=== PATIENT | female | born 1990 | race Caucasian/White ===

== ENCOUNTER 2021-05-06 08:16 | Emergency (ER) | payer MEDICARE, MEDICAID ==
[2021-05-06] MEDS ORDERED: Albuterol/Ipratropium 3.0-0.5 MG/3 ML Neb Soln NEB PRN (10:14)
--- NOTE | 2021-05-06 16:01 | EDM.PDOC ---
ED HPI GENERAL MEDICAL PROBLEM - General Chief Complaint: General Stated Complaint: CHEST PAIN Time Seen by Provider: 05/06/21 08:20 Source of Information: Reports: Patient, EMS History Limitations: Reports: No Limitations - History of Present Illness INITIAL COMMENTS - FREE TEXT/NARRATIVE: Presents to the ED for generalized illness going on 12 days. Whole household had a head cold/respiratory approximately 2-1/2 weeks ago but patient did not fully improve. Patient has Down syndrome and has difficulty verbalizing her health feelings and concerns. Patient signed with her hand indicating pressure or tightness on her chest. Tells her mom that she does not feel well, with lots of crying. Patient is eating well, no changes to urinary habits color smell frequency, bowel movements are normal. Patient answers yes and no to a few questions. But will not elaborate on her health condition. - Related Data Allergies Allergy/AdvReac Type Severity Reaction Status Date / Time cefixime [From Suprax] Allergy Hives Verified 05/06/21 09:41 Home Meds: Home Meds Levothyroxine 1 05/06/21 [History] Past Medical History Other HEENT History: sensitive to noise Other Neuro History: downs syndrome mostly non-verbal communication Psychiatric History: Reports: Developmental Delay Endocrine/Metabolic History: Reports: Hypothyroidism Social & Family History - Tobacco Use Tobacco Use Status *Q: Never Tobacco User ED ROS GENERAL - Review of Systems Review Of Systems: See Below Constitutional: Reports: No Symptoms. Denies: Fever, Chills, Weakness, Fatigue, Diaphoresis, Decreased Appetite HEENT: Reports: No Symptoms Respiratory: Reports: No Symptoms Cardiovascular: Reports: No Symptoms Endocrine: Reports: Other (Concerned over hypothyroid) GI/Abdominal: Reports: No Symptoms : Reports: No Symptoms Musculoskeletal: Reports: No Symptoms Skin: Reports: No Symptoms Neurological: Reports: No Symptoms Psychiatric: Reports: No Symptoms Hematologic/Lymphatic: Reports: No Symptoms ED EXAM, GENERAL - Physical Exam Exam: See Below Free Text/Narrative:: 30-year-old patient with Down syndrome. ABC intact, no apparent distress. Speaking in full sentences, no obvious trauma. Alert and oriented to her mother and surroundings, GCS 4 5 6. Exam Limited By: No Limitations (Present over my skin fluid right now no I think that he is case) General Appearance: Alert, WD/WN, No Apparent Distress Eye Exam: Bilateral Eye: EOMI, PERRL, Other (Increased tear gay) Ears: Normal External Exam, Normal Canal, Hearing Grossly Normal, Normal TMs Ear Exam: Bilateral Ear: Auricle Normal, Canal Normal, TM normal Nose: Normal Inspection, Normal Mucosa, No Blood Throat/Mouth: Normal Inspection, Normal Lips, Normal Teeth, Normal Gums, Normal Oropharynx, Normal Voice, No Airway Compromise Head: Atraumatic, Normocephalic Neck: Normal Inspection, Supple, Non-Tender, Full Range of Motion. No: Lymphadenopathy (R), Lymphadenopathy (L) Respiratory/Chest: No Respiratory Distress, Lungs Clear, Normal Breath Sounds, No Accessory Muscle Use, Chest Non-Tender Cardiovascular: Normal Peripheral Pulses, Regular Rate, Rhythm, No Edema, No Gallop, No JVD, No Murmur, No Rub GI/Abdominal: Normal Bowel Sounds, Soft, Non-Tender, No Organomegaly, No Distention, No Mass Back Exam: Normal Inspection, Full Range of Motion. No: CVA Tenderness (R), CVA Tenderness (L) Extremities: Normal Inspection, Normal Range of Motion, Non-Tender, Normal Capillary Refill, No Pedal Edema Neurological: Alert, Oriented, Normal Cognition Psychiatric: Normal Affect, Tearful Skin Exam: Warm, Dry, Intact, Normal Color, No Rash Lymphatic: No Adenopathy #1 Interpretation EKG Date: 05/06/21 (Normal sinus rhythm ST elevation in V3 V4 V5 V6, no ectopy) Course - Vital Signs Last Recorded V/S: Last Vital Signs Temp 98.0 F 05/06/21 08:45 Pulse 100 05/06/21 08:45 Resp 16 05/06/21 08:45 BP 114/66 05/06/21 08:45 Pulse Ox 98 05/06/21 08:45 - Orders/Labs/Meds Orders: Active Orders 24 hr Category Date Time Status Chest 2V [CR] Stat Exams 05/06/21 09:00 Taken Labs: Laboratory Tests 05/06/21 05/06/21 05/06/21 Range/Units 09:00 09:13 09:13 WBC 5.7 (4.0-11.0) K/uL RBC 4.27 (3.80-5.80) M/uL Hgb 13.6 (11.5-16.5) g/dL Hct 40.0 (37.0-47.0) % MCV 94 (76-96) fL MCH 31.9 (27.0-32.0) pg MCHC 34.0 (31.0-35.0) g/dL RDW 12.7 (11.0-16.0) % Plt Count 281 D (150-500) K/uL MPV 10.2 H (6.0-10.0) fL Neut % (Auto) 69.1 (45.0-70.0) % Lymph % (Auto) 18.0 L (20.0-40.0) % [place] % (Auto) 8.6 (3.0-10.0) % Eos % (Auto) 3.4 (1.0-5.0) % Baso % (Auto) 0.9 H (0.0-0.5) % Neut # (Auto) 3.92 (2.00-7.50) K/uL Lymph # (Auto) 1.02 L (1.50-4.00) K/uL [facility] # (Auto) 0.49 (0.20-0.80) K/uL Eos # (Auto) 0.19 (0.04-0.40) K/uL Baso # (Auto) 0.05 (0.02-0.10) K/uL Sodium 138 (136-145) mmol/L Potassium 4.1 (3.5-5.1) mmol/L Chloride 104 (98-107) mmol/L Carbon Dioxide 26.8 (21.0-32.0) mmol/L Anion Gap 11.3 (5.0-15.0) mmol/L BUN 13 (8-26) mg/dL Creatinine 0.86 (0.55-1.02) mg/dL Est Cr Clr Drug Dosing TNP Estimated GFR (MDRD) > 60 (>60) MLS/MIN BUN/Creatinine Ratio 15.1 (6-25) Glucose 99 (74-100) mg/dL Calcium 8.6 (8.5-10.1) mg/dL Troponin I < 0.017 (0.000-0.060) ng/mL TSH, Ultra Sensitive 1.727 D (0.358-3.740) uIU/mL Urine Color Yellow Urine Appearance Clear (CLEAR) Urine pH 7.0 (5.0-8.0) Ur Specific [place] 1.010 (1.003-1.030) Urine Protein Negative (NEGATIVE) mg/dL Urine Glucose (UA) Negative (NEGATIVE) mg/dL Urine Ketones Negative (NEGATIVE) mg/dL Urine Occult Blood Trace-intact H (NEGATIVE) Urine Nitrite Negative (NEGATIVE) Urine Bilirubin Negative (NEGATIVE) Urine Urobilinogen 0.2 (0.2-1.0) E.U./dL Ur Leukocyte Esterase Negative (NEGATIVE) Urine RBC 0-5 H /HPF Urine WBC 0-5 H /HPF Ur Squamous Epith Cells Occasional /HPF SARS-CoV-2 RNA (PAULA) (NEGATIVE) 05/06/21 Range/Units 10:04 WBC (4.0-11.0) K/uL RBC (3.80-5.80) M/uL Hgb (11.5-16.5) g/dL Hct (37.0-47.0) % MCV (76-96) fL MCH (27.0-32.0) pg MCHC (31.0-35.0) g/dL RDW (11.0-16.0) % Plt Count (150-500) K/uL MPV (6.0-10.0) fL Neut % (Auto) (45.0-70.0) % Lymph % (Auto) (20.0-40.0) % [place] % (Auto) (3.0-10.0) % Eos % (Auto) (1.0-5.0) % Baso % (Auto) (0.0-0.5) % Neut # (Auto) (2.00-7.50) K/uL Lymph # (Auto) (1.50-4.00) K/uL [facility] # (Auto) (0.20-0.80) K/uL Eos # (Auto) (0.04-0.40) K/uL Baso # (Auto) (0.02-0.10) K/uL Sodium (136-145) mmol/L Potassium (3.5-5.1) mmol/L Chloride (98-107) mmol/L Carbon Dioxide (21.0-32.0) mmol/L Anion Gap (5.0-15.0) mmol/L BUN (8-26) mg/dL Creatinine (0.55-1.02) mg/dL Est Cr Clr Drug Dosing Estimated GFR (MDRD) (>60) MLS/MIN BUN/Creatinine Ratio (6-25) Glucose (74-100) mg/dL Calcium (8.5-10.1) mg/dL Troponin I (0.000-0.060) ng/mL TSH, Ultra Sensitive (0.358-3.740) uIU/mL Urine Color Urine Appearance (CLEAR) Urine pH (5.0-8.0) Ur Specific [place] (1.003-1.030) Urine Protein (NEGATIVE) mg/dL Urine Glucose (UA) (NEGATIVE) mg/dL Urine Ketones (NEGATIVE) mg/dL Urine Occult Blood (NEGATIVE) Urine Nitrite (NEGATIVE) Urine Bilirubin (NEGATIVE) Urine Urobilinogen (0.2-1.0) E.U./dL Ur Leukocyte Esterase (NEGATIVE) Urine RBC /HPF Urine WBC /HPF Ur Squamous Epith Cells /HPF SARS-CoV-2 RNA (PAULA) Negative (NEGATIVE) Meds: Medications Discontinued Medications Generic Name Dose Route Start Last Admin Trade Name Freq PRN Reason Stop Dose Admin Albuterol/Ipratropium 3 ml 05/06/21 10:14 05/06/21 10:16 Albuterol/Ipratropium 3.0-0.5 Mg/3 Ml Neb Soln NEB 3 ml Q4H PRN Administration Shortness of Breath Departure - Departure Time of Disposition: 12:05 Disposition: Home, Self-Care 01 Condition: Good Clinical Impression: Viral respiratory illness - Discharge Information *PRESCRIPTION DRUG MONITORING PROGRAM REVIEWED*: No *COPY OF PRESCRIPTION DRUG MONITORING REPORT IN PATIENT VLAD: No Instructions: Albuterol inhalation powder, Albuterol inhalation aerosol Referrals: PCP,None [Primary Care Provider] - Forms: ED Department Discharge Additional Instructions: Albuterol inhaler sent to [facility] in [place]. Follow up with Primary Care Physician in a week. Sepsis Event Note (ED) - Focused Exam Vital Signs: Vital Signs Temp Pulse Resp BP Pulse Ox 05/06/21 08:45 98.0 F 100 16 114/66 98 - My Orders Last 24 Hours: My Active Orders 05/06/21 09:00 Chest 2V [CR] Stat - Assessment/Plan Last 24 Hours: My Active Orders 05/06/21 09:00 Chest 2V [CR] Stat Assessment:: 30-year-old female who presents for evaluation of generalized illness. This is consistent with a viral respiratory infection, there are no signs at this point of other serious bacterial infection such as otitis media, retropharyngeal abscess, epiglottitis, peritonsillar abscess, strep pharyngitis, pneumonia, sinusitis, meningitis, bacteremia. Given clear lung sounds, no presentation of fever, no hypoxia, or respiratory distress, and a negative chest x-ray the likelihood of bacterial pneumonia is very unlikely. There are no concerning gastrointestinal symptoms at this point and no signs of dehydration. Close follow-up with primary care physician is indicated. Return to the ED for fever greater than 103, protracted vomiting effusion or lethargy. Plan: ABC, history, exam, labs to include CBC, BMP, UA, Covid, EKG, DuoNeb, chest x- ray, patient education and shared decision-making, prescription for albuterol MDI with spacer called into [facility] for possible residual respiratory symptoms from bilateral illness. Patient felt better after DuoNeb x1
--- NOTE | 2021-05-07 09:21 | CR ---
Date of Service: 05/06/21 Clinical Data: motioning for chest discomfort PA AND LATERAL CHEST: Comparison is made to a prior exam dated 11/25/06. The heart size is normal. There is a patchy area of increased density in the right upper mid lung on the frontal view suspicious for infiltrate or atelectasis. Pneumonia should be considered. There is also a slight patchy infiltrate in the left mid lung. The lungs are otherwise clear. No pneumothorax. No pleural effusions. [id number] [facility]
== END 2021-05-06 12:05 | disposition home or self-care (01) ==
LOC: LB.ED 08:16
DX: J98.8 Other specified respiratory disorders (principal); E03.9 Hypothyroidism, unspecified; Z88.1 Allergy status to other antibiotic agents; Z20.822 Contact with and (suspected) exposure to COVID-19
CPT/HCPCS: 36415; 71046; 80048; 81001; 84443; 84484; 85025; 93005; 99284; U0002; J7620-GY